=== PATIENT | female | born 1975 | race Caucasian/White ===

== ENCOUNTER 2020-07-14 11:51 | Emergency (ER) | payer SELFPAY ==
[~2020-07-14] VITALS: Ht 170.2 cm; Wt 54.4 kg
[2020-07-14 11:54] VITALS: BP 138/92
[2020-07-14 11:59] VITALS: BP 138/92
== END 2020-07-14 11:59 | disposition home or self-care (01) ==
LOC: MED 11:51
DX: F19.90 Other psychoactive substance use, unspecified, uncomplicated (principal); Z02.89 Encounter for other administrative examinations
CPT/HCPCS: 99283